=== PATIENT | male | born 1955 ===

== ENCOUNTER 2018-05-26 07:20 | Day surgery (SDC) | payer OTHER ==
[~2018-05-26] VITALS: Ht 170.2 cm; Wt 83.9 kg
[2018-05-26 07:48] VITALS: BP 135/94
[2018-05-26] MEDS ORDERED: [UNRECOGNIZED DRUG - REMARK] PO (07:52)
--- NOTE | 2018-05-26 07:52 | Short Stay Surgery H&P ---
History of Present Illness History of Present Illness Chief Complaint Abdominal pains. CARMEN Aguilar is a 62 year old male who was admitted for colonoscopy for abdominal pains Patient History Allergies: Coded Allergies: No Known Allergies (Unverified , 05/26/18) Review of Systems Cardiovascular: Reports: no symptoms Respiratory: Reports: no symptoms Skeletal: Reports: trauma Gastrointestinal: Reports: other Genitourinary: Reports: no symptoms Neurologic: Reports: no symptoms Endocrine: Reports: no symptoms Hematologic: Reports: no symptoms Physical Exam Skin: normal HENT: normal Heart: normal Lungs: normal Abdomen: abnormal Extremities: normal Genitourinary: normal Plan Plan of Care Total colonoscopy and possible biopsy Preop Interventions None. Summary of Findings See the reports Attestation Are the patient's medical conditions optimized for surgery? Attestation Response: yes Margareth Eli MD May 26, 2018 07:52
[2018-05-26] MEDS ORDERED: PROTONIX40 MG ORAL (07:53)
--- NOTE | 2018-05-26 07:53 | Pre-Procedure Note/Attestation ---
Pre-Procedure Note/Attestation Complete Prior to Procedure Planned Procedure: left Procedure Narrative: Examination of the total colon via endoscopy Indications for Procedure Pre-Operative Diagnosis: R/O colitis/polyps Attestation I attest that I discussed the nature of the procedure; its benefits; risks and complications; and alternatives (and the risks and benefits of such alternatives ), prior to the procedure, with the patient (or the patient's legal publications sales representative). I attest that, if there was a reasonable possibility of needing a blood transfusion, the patient (or the patient's legal publications sales representative) was given the [facility] standardized written summary, pursuant to the Jagdeep Delvin Blood Safety Act ([place] Health and Safety Code # 1645, as amended). I attest that I re-evaluated the patient just prior to the surgery and that there has been no change in the patient's H&P, except as documented below: Margareth Eli MD May 26, 2018 07:53
[2018-05-26] MEDS ORDERED: LR 1000ml ONE (08:00)
[2018-05-26] MEDS ORDERED: Propofol 200mg/20ml IV ONE (08:00)
--- NOTE | 2018-05-26 08:09 | Anethesia Preoperative Eval ---
Anesthesia Pre-op PMH/ROS General Date of Evaluation: May 26, 2018 Time of Evaluation: 07:30 ASA Score: ASA 1 Mallampati Score Class I : Soft palate, uvula, fauces, pillars visible Class II: Soft palate, uvula, fauces visible Class III: Soft palate, base of uvula visible Class IV: Only hard plate visible Mallampati Classification: Class I Allergies: Coded Allergies: No Known Allergies (Unverified , 05/26/18) Anesthesia Pre-op Phys. Exam Physician Exam Last Vital Signs Date Time Temp Pulse Resp B/P (MAP) Pulse Ox O2 Delivery O2 Flow Rate FiO2 05/26/18 07:48 97.2 68 18 135/94 (108) 97 97.2 05/26/18 07:46 Room Air Airway Exam Mallampati Score: Class I Kae Osman MD May 26, 2018 08:09
--- NOTE | 2018-05-26 08:10 | Immediate Post-Op Evaluation ---
Immediate Post-Op Evalulation Immediate Post-Op Evalulation Procedure: colonoscopy Date of Evaluation: May 26, 2018 Time of Evaluation: 08:10 Nausea: No Vomiting: No Kae Osman MD May 26, 2018 08:10
--- NOTE | 2018-05-26 08:12 | Endoscopy Procedure Note ---
Endoscopy Procedure Note General Indication for Procedure: Abdominal pains, history of colon polyps Procedures Performed: colonoscopy - Severe genralized diverticulosis and no evidence of colon polyps found in this exam. Specimen: none Pt Tolerated Procedure Well: Yes Estimated Blood Loss: none Anesthesia Anesthesiologist: Dr. Osman Anesthesia: moderate sedation Medications Medication Given: see anesthesia record Inserted Devices Implant(s) used?: No Quality Quality of Bowel Preparation: Excellent Did scope reach the cecum?: Yes Was there any complications?: No GI Core Measures 50 yrs or older w/o bx or poly: Yes 10yrs. F/U not recommended: Yes 10 yrs. F/U needed: Yes <3yrs. since last colonoscopy: No Med reason:<3 yrs.: System Reason:<3 yrs.: Last colonoscopy >= to 3yrs: Yes Margareth Eli MD May 26, 2018 08:12
--- NOTE | 2018-05-26 08:13 | Discharge Instructions ---
Discharge Instructions Discharge Instructions Follow up with: Visit the doctor in 2 weeks in the office For Congestive Heart Failure Reminder Report to your physician any weight gain of 5 pounds or more in one week. Margareth Eli MD May 26, 2018 08:13
[2018-05-26 08:20] VITALS: BP 127/87
[2018-05-26 08:25] VITALS: BP 127/89
[2018-05-26 08:32] VITALS: BP 128/83
--- NOTE | 2018-05-26 08:43 | 48 Hour Post Anesthesia Eval ---
Post Anesthesia Evaluation Procedure: colonoscopy Date of Evaluation: May 26, 2018 Time of Evaluation: 08:43 Nausea: No Vomiting: No Kae Osman MD May 26, 2018 08:43
[2018-05-26 08:50] VITALS: BP 136/87
[2018-05-26 09:07] VITALS: BP 134/85
--- NOTE | 2018-05-26 10:45 | Operative Note - Dictated ---
DATE OF OPERATION: 05/26/2018 SURGEON: Margareth Eli M.D. PROCEDURE: Total colonoscopy. PREOPERATIVE DIAGNOSIS: History of diverticulitis and abdominal pain. POSTOPERATIVE DIAGNOSIS: Severe generalized diverticulosis of the colon, otherwise normal study. No evidence of polyps found. No colitis. MEDICATION USED: Per Dr. Osman, anesthesiologist. INSTRUMENT: GIF Olympus video colonoscope. DESCRIPTION OF PROCEDURE: The patient after arriving in endoscopy unit was told about risks and benefits of the procedure which he accepted and signed informed consent. He was then put on the left lateral decubitus position. After adequate IV sedation, the scope was gently passed through the anal area and a retroflexion maneuver, which was applied in the rectum did not reveal any pathology. The rest of the rectum also looked normal. At this point, the scope was passed through rather redundant left colon, which revealed significant numbers of diverticular openings. However, there was no any evidence of diverticulitis or colitis or polyps or tumors at this time. Gradually, the scope was advanced towards the splenic flexure. It was guided into the transverse colon and finally guided into the right colon. It has to be mentioned that there was significant numbers of diverticular lesions along the colon as examined. However, there were no any other pathologies. Upon reaching to the base of the cecum within 5 minutes ,the scope was gradually pulled out and there was no any pathology as I mentioned found. The colon cleanup was excellent. The patient tolerated the procedure well and left the endoscopy room in a good condition. Margareth Eli M.D. DR: HENOK JOB#: [id number] CC:
--- NOTE | 2018-05-26 17:00 | History and Physical Report ---
DATE OF ADMISSION: 05/26/2018 HISTORY AND PHYSICAL PREOPERATIVE EVALUATION HISTORY OF PRESENT ILLNESS: The patient is a 62-year-old gentleman who is being seen prior to undergoing the procedure of total colonoscopy for which he has been scheduled to receive for evaluation of his gastrointestinal conditions. The patient is a retired police patrol lieutenant and, as such, in the past, he has had history of abdominal pains, mostly located over the left lower quadrant area from which he is still complaining that it occurs intermittently. He does have history of diverticulosis and also diverticulitis, which have been his main conditions in the past with colon polyps. In 2011, actually, he had an attack of diverticulitis for which he received adequate treatment. Also, the patient has had history of diagnosis of gastroesophageal acid reflux and irritable bowel syndrome, IBS with gastric polyps that have been taking care adequately by proper physician as he was also going to [facility]. The patient does have history of injuries over at work due to constant injuries to the different parts of the body injuries for which he has been taking care of. As I mentioned, he does have abdominal cramps and diarrhea attacks from time to time. He recently also has had history of CT scan of the abdomen, the results of which is not available. Also the medical records revealed that the applicant did have an upper GI endoscopy in 2016 when he was found to have a small hiatal hernia, otherwise it was normal. PAST MEDICAL HISTORY: Hyperlipidemia and diverticulitis. SURGICAL HISTORY: None. ALLERGIES: None significant. HABITS: The applicant drinks some alcoholic beverages such as vodka two times per week, but does not smoke cigarettes. MEDICATIONS: Only Tums, otherwise he does not take any particular medications. REVIEW OF SYSTEMS: Basically history of present illness, as he only does have abdominal pain, cramps, as I mentioned earlier, otherwise, completely normal. PHYSICAL EXAMINATION: GENERAL: At this time reveals an alert and well-oriented gentleman, does not seem to be in any acute distress. VITAL SIGNS: All stable. HEENT: Normocephalic. Pupils equal in size, reactive to light and accommodation. Buccal cavity, tongue midline, well hydrated. NECK: Supple. No JVD, thyromegaly, or adenopathy. CHEST: Clear to auscultation and percussion. No rales or rhonchi. HEART: S1 and S2 normal, regular rhythm. No gallops or murmur. ABDOMEN: Soft and there is minimal tenderness over the left side of the abdomen, otherwise, completely normal. No hepatosplenomegaly. No masses noted. Bowel sounds are present. EXTREMITIES: Unremarkable. PREOPERATIVE IMPRESSION: 1. Abdominal pain, mostly consistent with history of diverticulosis and possible underlying irritable bowel syndrome, IBS associated with diarrhea. 2. History of diverticulitis, resolved. 3. History of gastroesophageal acid reflux, controlled. RECOMMENDATION: The patient seems to be at this time stable to undergo the procedure of colonoscopic examination. Procedure of colonoscopic examination is planned. He understands the risks and benefits and will sign the consent. Said Unique Eli DR: IGLESIA JOB#: [id number] CC:
== END 2018-05-26 09:20 | disposition home or self-care (01) ==
LOC: GAS 07:20
DX: R10.9 Unspecified abdominal pain (principal); K57.30 Diverticulosis of large intestine without perforation or abscess without bleeding; K21.9 Gastro-esophageal reflux disease without esophagitis; K58.0 Irritable bowel syndrome with diarrhea; E78.5 Hyperlipidemia, unspecified
CPT/HCPCS: 45378; J2704; 94003; 94150